=== PATIENT | female | born 1985 | race African-American/Black ===

== ENCOUNTER 2017-02-16 20:01 | Emergency (ER) | payer MEDICAID ==
[~2017-02-16] VITALS: Ht 172.7 cm; Wt 84.0 kg
[2017-02-16 20:02] VITALS: BP 122/85; PULSE 75; RESP 16; TEMP 98.7; O2SAT 97
[2017-02-16 20:35] VITALS: RESP 17; O2SAT 99
--- NOTE | 2017-02-16 20:38 | PD ---
HPI Chief Complaint: Pain: Acute or Chronic Time Seen by Provider: 20:24 Travel History International Travel<30 days: No Contact w/Intl Traveler<30days: No Traveled to known affect area: No History of Present Illness HPI The patient is a 31-year-old after [place] female who presents to the emergency department for chest pain. The patient notes a 6 month history of intermittent chest pain which is located over the inferior left rib cage, intermittent, lasts several minutes, described as dull and achy, and exacerbated by sneezing, coughing, and lying on the affected side. She denies any exertional symptoms, however, does note the pain occasionally takes her breath away. She does note occasional nausea but denies any vomiting or diaphoresis. The patient denies any known history of coronary artery disease, hypertension, hyperlipidemia, diabetes, but does have a history of tobacco use. She also states her mother and father had heart-related diseases. The symptoms have been ongoing for 6 months, she denies any productive cough or rash over the affected area. She cannot recall any trauma to the affected area. The patient's last menstrual cycle was January 22, 2017. The patient denies any postprandial symptoms. FORMERLY [facility] Past Medical History Medical History: Denies Significant Hx ?: Unknown LMP: 01/28/17 Ectopic : Yes (LEFT FALLOPIAN TUBE REMOVED) Past Surgical History Narrative Surgical Ectopic with left fallopian tube removal, right shoulder surgery Social History Alcohol Use: Yes (WEEKENDS) Tobacco Use: Yes (/2 PPD) Substance Use: Yes (MARIJUANA DAILY) Allergies-Medications (Allergen,Severity, Reaction): Coded Allergies: No Known Allergies (Unverified , 02/16/17) Reported Meds & Prescriptions Reported Meds & Active Scripts Active No Active Prescriptions or Reported Medications Review of Systems Except as stated in HPI: all other systems reviewed are Neg General / Constitutional: No: Fever HENT: No: Lightheadedness Cardiovascular: Positive: Chest Pain or Discomfort, No: Diaphoresis, Dyspnea on exertion Respiratory: Positive: Shortness of Breath Gastrointestinal: Positive: Nausea, No: Vomiting, Abdominal Pain Skin: No Rash Physical Exam Narrative GENERAL: Awake, alert, pleasant 31-year-old female who appears her stated age and is in no acute respiratory distress. SKIN: Focused skin assessment warm/dry. HEAD: Atraumatic. Normocephalic. EYES: Pupils equal and round. No scleral icterus. No injection or drainage. ENT: No nasal bleeding or discharge. Mucous membranes pink and moist. NECK: Trachea midline. No JVD. CARDIOVASCULAR: Regular rate and rhythm. No murmur appreciated. Palpation of the chest wall just inferior to the breast reproduces symptoms. RESPIRATORY: No accessory muscle use. Clear to auscultation. Breath sounds equal bilaterally. GASTROINTESTINAL: Abdomen soft, non-tender, nondistended. No epigastric tenderness, rebound tennis, guarding, rigidity. Negative Simpson's. Back: No CVA tenderness. MUSCULOSKELETAL: No obvious deformities. No clubbing. No cyanosis. No edema. NEUROLOGICAL: Awake and alert. No obvious cranial nerve deficits. Motor grossly within normal limits. Normal speech. PSYCHIATRIC: Appropriate mood and affect; insight and judgment normal. Data Data Last Documented VS Vital Signs Date Time Temp Pulse Resp B/P (MAP) Pulse Ox O2 Delivery O2 Flow Rate FiO2 02/16/17 20:35 73 17 02/16/17 20:35 99 Nasal Cannula 2.00 02/16/17 20:02 98.7 Orders Orders Electrocardiogram (02/16/17 20:31) Ckmb (Isoenzyme) Profile (02/16/17 20:31) Complete Blood Count With Diff (02/16/17 20:31) Comprehensive Metabolic Panel (02/16/17 20:31) Magnesium (Mg) (02/16/17 20:31) Prothrombin Time / Inr (Pt) (02/16/17 20:31) Act Partial Throm Time (Ptt) (02/16/17 20:31) Troponin I (02/16/17 20:31) Chest, Single Ap (02/16/17 20:31) Ecg Monitoring (02/16/17 20:31) Bilateral Bp Monitoring (02/16/17 20:31) Iv Access Insert/Monitor (02/16/17 20:31) Oximetry (02/16/17 20:31) Oxygen Administration (02/16/17 20:31) Morphine Inj (Morphine Inj) (02/16/17 20:45) Sodium Chloride 0.9% Flush (Ns Flush) (02/16/17 20:45) Sodium Chlorid 0.9% 500 Ml Inj (Ns 500 M (02/16/17 20:45) Ondansetron Inj (Zofran Inj) (02/16/17 20:45) Ketorolac Inj (Toradol Inj) (02/16/17 20:45) Ed Urine Pregnancytest Poc (02/16/17 20:38) CKMB (02/16/17 20:35) CKMB% (02/16/17 20:35) Labs Laboratory Tests Test 02/16/17 20:35 White Blood Count 8.6 TH/MM3 Red Blood Count 4.96 MIL/MM3 Hemoglobin 14.0 GM/DL Hematocrit 41.5 % Mean Corpuscular Volume 83.8 FL Mean Corpuscular Hemoglobin 28.3 PG Mean Corpuscular Hemoglobin Concent 33.8 % Red Cell Distribution Width 13.7 % Platelet Count 236 TH/MM3 Mean Platelet Volume 7.7 FL Neutrophils (%) (Auto) 59.2 % Lymphocytes (%) (Auto) 27.7 % Monocytes (%) (Auto) 9.5 % Eosinophils (%) (Auto) 2.8 % Basophils (%) (Auto) 0.8 % Neutrophils # (Auto) 5.1 TH/MM3 Lymphocytes # (Auto) 2.4 TH/MM3 Monocytes # (Auto) 0.8 TH/MM3 Eosinophils # (Auto) 0.2 TH/MM3 Basophils # (Auto) 0.1 TH/MM3 CBC Comment DIFF FINAL Differential Comment Prothrombin Time 12.0 SEC Prothromb Time International Ratio 1.1 RATIO Activated Partial Thromboplast Time 25.3 SEC Blood Urea Nitrogen 7 MG/DL Creatinine 0.74 MG/DL Random Glucose 85 MG/DL Total Protein 7.3 GM/DL Albumin 3.8 GM/DL Calcium Level 8.9 MG/DL Magnesium Level 2.2 MG/DL Alkaline Phosphatase 83 U/L Aspartate Amino Transf (AST/SGOT) 15 U/L Alanine Aminotransferase (ALT/SGPT) 26 U/L Total Bilirubin 0.3 MG/DL Sodium Level 138 MEQ/L Potassium Level 3.7 MEQ/L Chloride Level 108 MEQ/L Carbon Dioxide Level 22.6 MEQ/L Anion Gap 7 MEQ/L Estimat Glomerular Filtration Rate 112 ML/MIN Total Creatine Kinase 123 U/L Troponin I LESS THAN 0.02 NG/ML MDM Medical Decision Making Medical Screen Exam Complete: Yes Emergency Medical Condition: Yes Medical Record Reviewed: Yes Interpretation(s) EKG reveals sinus rhythm with sinus arrhythmia. Inverted T waves noted in lead 3. Last Impressions Chest X-Ray 02/16/172030 Signed Impressions: Service Date/Time: Thursday, February 16, 2017 20:40 - CONCLUSION: No acute disease. Wiliam Michael MD Laboratory Tests Test 02/16/17 20:35 White Blood Count 8.6 TH/MM3 Red Blood Count 4.96 MIL/MM3 Hemoglobin 14.0 GM/DL Hematocrit 41.5 % Mean Corpuscular Volume 83.8 FL Mean Corpuscular Hemoglobin 28.3 PG Mean Corpuscular Hemoglobin Concent 33.8 % Red Cell Distribution Width 13.7 % Platelet Count 236 TH/MM3 Mean Platelet Volume 7.7 FL Neutrophils (%) (Auto) 59.2 % Lymphocytes (%) (Auto) 27.7 % Monocytes (%) (Auto) 9.5 % Eosinophils (%) (Auto) 2.8 % Basophils (%) (Auto) 0.8 % Neutrophils # (Auto) 5.1 TH/MM3 Lymphocytes # (Auto) 2.4 TH/MM3 Monocytes # (Auto) 0.8 TH/MM3 Eosinophils # (Auto) 0.2 TH/MM3 Basophils # (Auto) 0.1 TH/MM3 CBC Comment DIFF FINAL Differential Comment Prothrombin Time 12.0 SEC Prothromb Time International Ratio 1.1 RATIO Activated Partial Thromboplast Time 25.3 SEC Blood Urea Nitrogen 7 MG/DL Creatinine 0.74 MG/DL Random Glucose 85 MG/DL Total Protein 7.3 GM/DL Albumin 3.8 GM/DL Calcium Level 8.9 MG/DL Magnesium Level 2.2 MG/DL Alkaline Phosphatase 83 U/L Aspartate Amino Transf (AST/SGOT) 15 U/L Alanine Aminotransferase (ALT/SGPT) 26 U/L Total Bilirubin 0.3 MG/DL Sodium Level 138 MEQ/L Potassium Level 3.7 MEQ/L Chloride Level 108 MEQ/L Carbon Dioxide Level 22.6 MEQ/L Anion Gap 7 MEQ/L Estimat Glomerular Filtration Rate 112 ML/MIN Total Creatine Kinase 123 U/L Troponin I LESS THAN 0.02 NG/ML Differential Diagnosis Differential diagnosis includes costochondritis, pulmonary embolism, pleural effusion, malignancy, gastritis, GERD, esophageal spasm, acute coronary syndrome , splenomegaly. Narrative Course IV was established, labs are drawn and sent, and the patient was placed on cardiac telemetry monitoring and continuous pulse oximetry monitoring. EKG was ordered and interpreted. Chest x-ray was obtained. The patient received Toradol, morphine, and Zofran for her symptoms. Bedside UA test was negative. The patient's chest x-rays unremarkable. Initial troponin is within normal limits. The patient's chest pain is most likely musculoskeletal as I can reproduce it on palpation, and it is worse with lying on the affected side and sneezing/coughing. The patient is advised to take any inflammatories as needed and follow-up with her primary physician. She will be provided a copy of her chest x-ray results and lab results at discharge. Diagnosis Primary Impression: Chest wall pain Patient Instructions: General Instructions Additional Instructions: Medications as directed. Follow-up with your primary physician. Please provide the patient a copy of her labs and chest x-ray results at discharge. Return if symptoms worsen or progress. Med/Other Pt SpecificInfo: Prescription(s) given Scripts Ibuprofen (Ibuprofen) 600 Mg Tab 600 MG PO Q6H Y for Pain/Inflammation, #20 TAB 0 Refills Prov: Tanner Lopez MD 02/16/17 Disposition: DISCHARGE HOME Condition: Stable Tanner Lopez MD Feb 16, 2017 20:38
[2017-02-16] MEDS ORDERED: SODIUM CHLORID 0.9% 500 ML INJ 500 ML IV ONE (20:45)
[2017-02-16] MEDS ORDERED: KETOROLAC TROMETHAMINE 30 MG/ML (IVP) VIAL IV PUSH ONE (20:45)
[2017-02-16] MEDS ORDERED: ONDANSETRON HCL 4 MG/2 ML VIAL IV PUSH ONE (20:45)
[2017-02-16] MEDS ORDERED: MORPHINE SULFATE 4 MG/ML INJ IV PUSH ONE (20:45)
[2017-02-16] MEDS ORDERED: SODIUM CHLORIDE 0.9% FLUSH 10 ML FLUSH IVF PRN (20:45)
[2017-02-16 20:46] LABS: AUTOMATED NEUTROPHIL # 5.1 TH/MM3 (1.8-7.7); BASOPHIL # 0.1 TH/MM3 (0-0.2); BASOPHIL % 0.8 % (0.0-2.0); EOSINOPHIL # 0.2 TH/MM3 (0-0.4); EOSINOPHIL % 2.8 % (0.0-4.0); HEMATOCRIT 41.5 % (35.0-46.0); HEMO FLAGS DIFF FINAL; LYMPH % 27.7 % (9.0-44.0); LYMPHOCYTE # 2.4 TH/MM3 (1.0-4.8); MEAN CELL VOLUME 83.8 FL (80.0-100.0); MEAN CORPUSCULAR HEMOGLOBIN 28.3 PG (27.0-34.0); MEAN CORPUSCULAR HGB CONC 33.8 % (32.0-36.0); MONO % 9.5 % (0.0-8.0); NEUT % 59.2 % (16.0-70.0); PLATELET COUNT 236 TH/MM3 (150-450); RED BLOOD COUNT 4.96 MIL/MM3 (4.00-5.30); RED CELL DISTRIBUTION WIDTH 13.7 % (11.6-17.2); WHITE BLOOD COUNT 8.6 TH/MM3 (4.0-11.0)
[2017-02-16 20:55] LABS: APTT (PATIENT) 25.3 SEC (24.3-30.1); INTERNATIONAL NORMALIZED RATIO 1.1 RATIO
--- NOTE | 2017-02-16 21:01 | RADRPT ---
EXAM DATE/TIME: 02/16/2017 20:40 [facility] COMPARISON: No previous studies available for comparison. INDICATIONS : Chest pain and shortness of breath. MEDICAL HISTORY : None. SURGICAL HISTORY : None. ENCOUNTER: Initial ACUITY: 1 month PAIN SCORE: 8/10 LOCATION: Bilateral chest FINDINGS: A single view of the chest demonstrates the lungs to be symmetrically aerated without evidence of mas s, infiltrate or effusion. The cardiomediastinal contours are unremarkable. Osseous structures are intact. CONCLUSION: No acute disease. Wiliam Michael MD on February 16, 2017 at 20:59 Board Certified Radiologist. This report was verified electronically.
[2017-02-16 21:16] LABS: ANION GAP 7 MEQ/L (5-15); AST (GOT) 15 U/L (15-37); BICARBONATE 22.6 MEQ/L (21.0-32.0); BLOOD UREA NITROGEN 7 MG/DL (7-18); CHLORIDE 108 MEQ/L (98-107); GLOMERULAR FILTRATION RATE 112 ML/MIN (>89); MAGNESIUM 2.2 MG/DL (1.5-2.5); POTASSIUM 3.7 MEQ/L (3.5-5.1); SODIUM (NA) 138 MEQ/L (136-145)
[2017-02-16 21:17] LABS: ALT (GPT) 26 U/L (10-53)
[2017-02-16 21:21] LABS: ALKALINE PHOSPHATASE 83 U/L (45-117); CREATINE KINASE 123 U/L (26-192); TOTAL BILIRUBIN ADULT 0.3 MG/DL (0.2-1.0)
[2017-02-16] MEDS ORDERED: IBUP-232 PO (21:29)
--- NOTE | 2017-02-17 16:25 | EKG ---
Date Performed: 02/16/2017 Time Performed: 20:34:22 PTAGE: 31 years EKG: Sinus rhythm WITH SINUS ARRHYTHMIA NONSPECIFIC T-WAVE ABNORMALITY BORDERLINE ECG NO PREVIOUS TRACING DOCTOR: Devaughn Watts Interpretating Date/Time 02/17/2017 16:24:12
== END 2017-02-16 21:43 | disposition home or self-care (01) ==
LOC: NEPE 20:01
DX: R07.89 Other chest pain (principal); R11.0 Nausea; R06.02 Shortness of breath; R94.31 Abnormal electrocardiogram [ECG] [EKG]; F17.200 Nicotine dependence, unspecified, uncomplicated; Z82.49 Family history of ischemic heart disease and other diseases of the circulatory system
CPT/HCPCS: 71010; 80053; 82550; 82552; 83735; 84484; 84703; 85025; 85610; 85730; 93005; 96361; 96374; 96375; 99285; J1885; J2270; J2405; J7040

== ENCOUNTER 2017-04-13 15:17 | Emergency (ER) | payer MEDICAID ==
[~2017-04-13] VITALS: Ht 172.7 cm; Wt 90.0 kg
[~2017-04-13 15:17] MED LIST: IBUP-232 PO
[2017-04-13 15:19] VITALS: BP 115/61; PULSE 110; RESP 15; TEMP 99.5; O2SAT 97
[2017-04-13] MEDS ORDERED: SODIUM CHLOR 0.9% 1000 ML INJ 1,000 ML IV ONE ×2 (17:47→18:00)
--- NOTE | 2017-04-13 17:53 | PD ---
HPI Chief Complaint: GI Complaint Time Seen by Provider: 17:47 Travel History International Travel<30 days: No Contact w/Intl Traveler<30days: No Traveled to known affect area: No History of Present Illness HPI Patient is a 31-year-old female presents to emergency room complaints of URI with sinus congestion. Patient reports that since Sunday, she is not been feeling well. Reports that she has increased sinus congestion, reports that she 's had a postnasal drip and a productive cough. Patient reports that she is a smoker, reports that when she coughs, she is bringing up thick productive green to yellowish mucus. Patient denies any fevers, reports that she is having myalgias. She reports that she is coughing so hard, she is vomiting and now has a frontal headache. Patient reports that she is a strong family history of migraines, reports that she thinks that she may have a migraine right now. She reports that she has increased tenderness to the front of her head, reports that she also has photophobia. Patient reports that she has been feeling nauseous and has been vomiting and has not been able to keep anything down including fluids. Patient denies any sick contacts. Denies any recent travels/ trips. PFSH Past Medical History Medical History: Denies Significant Hx ?: Unknown LMP: 03/17/17 Ectopic : Yes (LEFT FALLOPIAN TUBE REMOVED) Past Surgical History Surgical History: No Previous Surgery Social History Alcohol Use: Yes (WEEKENDS) Tobacco Use: Yes (05/29 PPD) Substance Use: Yes (MARIJUANA DAILY) Allergies-Medications (Allergen,Severity, Reaction): Coded Allergies: No Known Allergies (Unverified , 02/16/17) Reported Meds & Prescriptions Reported Meds & Active Scripts Active Augmentin (Amoxicillin-Clavulanate) 875-125 Mg Tab 1 Tab PO BID 10 Days Review of Systems General / Constitutional: No: Fever Eyes: Positive: Photophobia, No: Blurred Vision, Redness, Tearing, Visual changes, Blindness HENT: Positive: Headaches, No: Neck Stiffness, Neck Pain Cardiovascular: No: Chest Pain or Discomfort Respiratory: Positive: Cough, No: Shortness of Breath Gastrointestinal: Positive: Nausea, Vomiting, No: Abdominal Pain Genitourinary: No: Dysuria Musculoskeletal: No: Pain Skin: No Rash Neurologic: Positive: Headache, No: Weakness, Dizziness, Syncope, Focal Abnormalities, Coordination Problem, Paresthesia, Seizures Psychiatric: No: Depression Endocrine: No: Polydipsia Hematologic/Lymphatic: No: Easy Bruising Physical Exam Narrative GENERAL: mild distress SKIN: Focused skin assessment warm/dry. HEAD: Atraumatic. Normocephalic. Patient with frontal sinus and maxillary tenderness EYES: Pupils equal and round. No scleral icterus. No injection or drainage. ENT: No nasal bleeding or discharge. Mucous membranes pink and moist. NECK: Trachea midline. No JVD. Patient with no Kernig's or Brudzinski's signs, no nuchal rigidity CARDIOVASCULAR: Regular rate and rhythm. No murmur appreciated. RESPIRATORY: No accessory muscle use. Clear to auscultation. Breath sounds equal bilaterally. GASTROINTESTINAL: Abdomen soft, non-tender, nondistended. Hepatic and splenic margins not palpable. MUSCULOSKELETAL: No obvious deformities. No clubbing. No cyanosis. No edema. NEUROLOGICAL: Awake and alert. No obvious cranial nerve deficits. Motor grossly within normal limits. Normal speech. CN 2-12 grossly intact with no neurological deficits. PSYCHIATRIC: Appropriate mood and affect; insight and judgment normal. Data Data Last Documented VS Vital Signs Date Time Temp Pulse Resp B/P (MAP) Pulse Ox O2 Delivery O2 Flow Rate FiO2 04/13/17 18:24 18 04/13/17 18:14 99 Room Air 04/13/17 15:19 99.5 110 Orders Orders Complete Blood Count With Diff (04/13/17 17:47) Comprehensive Metabolic Panel (04/13/17 17:47) Group A Rapid Strep Screen (04/13/17 17:47) Influenzae A/B Antigen (04/13/17 17:47) Chest, Pa & Lat (04/13/17 17:47) Ecg Monitoring (04/13/17 17:47) Iv Access Insert/Monitor (04/13/17 17:47) Oximetry (04/13/17 17:47) Sodium Chloride 0.9% Flush (Ns Flush) (04/13/17 18:00) Ct Brain W/O Iv Contrast(Rout) (04/13/17 17:47) Diphenhydramine Inj (Benadryl Inj) (04/13/17 18:00) Metoclopramide Inj (Reglan Inj) (04/13/17 18:00) Sodium Chlor 0.9% 1000 Ml Inj (Ns 1000 M (04/13/17 17:47) Dexamethasone Inj (Decadron Inj) (04/13/17 18:00) Sodium Chlor 0.9% 1000 Ml Inj (Ns 1000 M (04/13/17 18:00) Ed Urine Pregnancytest Poc (04/13/17 17:47) Strep Culture (Group A) (04/13/17 18:10) Amoxicil-Clavulanate (Augmentin) (04/13/17 21:45) Labs Laboratory Tests Test 04/13/17 18:10 White Blood Count 9.6 TH/MM3 Red Blood Count 4.81 MIL/MM3 Hemoglobin 14.1 GM/DL Hematocrit 41.0 % Mean Corpuscular Volume 85.1 FL Mean Corpuscular Hemoglobin 29.3 PG Mean Corpuscular Hemoglobin Concent 34.4 % Red Cell Distribution Width 13.6 % Platelet Count 195 TH/MM3 Mean Platelet Volume 8.1 FL Neutrophils (%) (Auto) 68.4 % Lymphocytes (%) (Auto) 16.6 % Monocytes (%) (Auto) 12.5 % Eosinophils (%) (Auto) 2.0 % Basophils (%) (Auto) 0.5 % Neutrophils # (Auto) 6.5 TH/MM3 Lymphocytes # (Auto) 1.6 TH/MM3 Monocytes # (Auto) 1.2 TH/MM3 Eosinophils # (Auto) 0.2 TH/MM3 Basophils # (Auto) 0.0 TH/MM3 CBC Comment DIFF FINAL Differential Comment Blood Urea Nitrogen 7 MG/DL Creatinine 0.85 MG/DL Random Glucose 90 MG/DL Total Protein 7.7 GM/DL Albumin 3.8 GM/DL Calcium Level 8.6 MG/DL Alkaline Phosphatase 87 U/L Aspartate Amino Transf (AST/SGOT) 23 U/L Alanine Aminotransferase (ALT/SGPT) 49 U/L Total Bilirubin 0.3 MG/DL Sodium Level 138 MEQ/L Potassium Level 3.6 MEQ/L Chloride Level 107 MEQ/L Carbon Dioxide Level 23.7 MEQ/L Anion Gap 7 MEQ/L Estimat Glomerular Filtration Rate 95 ML/MIN MDM Medical Decision Making Medical Screen Exam Complete: Yes Emergency Medical Condition: Yes Medical Record Reviewed: Yes Interpretation(s) Vital Signs Date Time Temp Pulse Resp B/P (MAP) Pulse Ox O2 Delivery O2 Flow Rate FiO2 04/13/17 15:19 99.5 110 15 115/61 (80) 71 Differential Diagnosis viral syndrome, sinusitis, influenza, pneumonia, migraine Narrative Course 31-year-old female who presents to emergency room with complaints of sinusitis, URI, productive cough which has been ongoing for the past 4 days. During the course of the patients emergency department visit, the patients history, examination, and differential diagnosis were reviewed with the patient. The patient was placed on a monitoring and evaluation advisor with oximetry and frequent blood pressure monitoring. The patient had an IV access obtained and blood work sent for analysis. The patient was initially provided IV fluids, IV Reglan, dexamethasone as well as IV Benadryl The patients laboratory studies were reviewed and remarkable for : CBC & BMP Diagram 04/13/17 18:10 Total Protein 7.7, Albumin 3.8, Calcium Level 8.6, Alkaline Phosphatase 87, Aspartate Amino Transf (AST/SGOT) 23, Alanine Aminotransferase (ALT/SGPT) 49, Total Bilirubin 0.3 Microbiology Date/Time Source Procedure Growth Status 04/13/17 18:10 Throat Group A Streptococcus Screen Pending Received 04/13/17 18:10 Nasal Aspirate Influenza Types A,B Antigen (ANGELA) - Final NEGATIVE FOR FLU A AND B ANTIGEN.... Complete 04/13/17 18:10 Throat Group A Streptococcus Screen (ANGELA) - Final Complete Radiology studies were reviewed and remarkable for: Last Impressions Head CT 04/13/171746 Signed Impressions: Service Date/Time: Thursday, April 13, 2017 18:32 - CONCLUSION: Normal examination. Aba Alfaro MD Chest X-Ray 04/13/171746 Signed Impressions: Service Date/Time: Thursday, April 13, 2017 18:02 - CONCLUSION: No acute disease. Aba Alfaro MD Patient reevaluated, patient reports that she is feeling much better at this time. Patient reports complete resolution of symptoms. I reviewed all labs and all studies with patient in detail, patient most likely with sinusitis causing her cephalgia and URI. Patient with normal neurovascular exam at this time, patient is safe to be discharged to home with outpatient follow-up. Patient will follow-up with her primary care doctor and return to emergency room as needed. Diagnosis Primary Impression: Sinusitis Qualified Codes: J01.10 - Acute frontal sinusitis, unspecified Patient Instructions: General Instructions Additional Instructions: Please provide patient with a copy of their lab work and studies at discharge* * Please follow up with your primary care doctor in 2-3 days Return to the ER if symptoms worsen or progress Return to the ER as needed Please take all antibiotics as prescribed Med/Other Pt SpecificInfo: Prescription(s) given Scripts Amoxicillin-Clavulanate (Augmentin) 875-125 Mg Tab 1 TAB PO BID for Infection for 10 Days, #20 TAB 0 Refills Prov: Amarilis Healy DO 04/13/17 Disposition: 01 DISCHARGE HOME Condition: Stable Amarilis Healy DO Apr 13, 2017 17:53
[2017-04-13] MEDS ORDERED: SODIUM CHLORIDE 0.9% FLUSH 10 ML FLUSH IVF PRN (18:00)
[2017-04-13] MEDS ORDERED: DEXAMETHASONE SOD PHOS 20 MG/5 ML VIAL IV PUSH ONE (18:00)
[2017-04-13] MEDS ORDERED: METOCLOPRAMIDE HCL 10 MG/2 ML VIAL IVP ONE (18:00)
[2017-04-13] MEDS ORDERED: diphenhydrAMINE HCL 50 MG/ML VIAL IVP ONE (18:00)
[2017-04-13 18:14] VITALS: RESP 16; O2SAT 99
--- NOTE | 2017-04-13 19:03 | RADRPT ---
EXAM DATE/TIME: 04/13/2017 18:02 [facility] COMPARISON: No previous studies available for comparison. INDICATIONS : Cough, congestion, dizziness and headache. MEDICAL HISTORY : Asthma. SURGICAL HISTORY : None. ENCOUNTER: Initial ACUITY: 4 - 6 days PAIN SCORE: 0/10 LOCATION: Bilateral chest FINDINGS: PA and lateral views of the chest demonstrate the lungs to be symmetrically aerated without evidence of mass, infiltrate or effusion. The cardiomediastinal contours are unremarkable. Osseous structure s are intact. CONCLUSION: No acute disease. Aba Alfaro MD on April 13, 2017 at 19:01 Board Certified Radiologist. This report was verified electronically.
[2017-04-13 19:07] LABS: AUTOMATED NEUTROPHIL # 6.5 TH/MM3 (1.8-7.7); BASOPHIL % 0.5 % (0.0-2.0); EOSINOPHIL # 0.2 TH/MM3 (0-0.4); HEMO FLAGS DIFF FINAL; LYMPH % 16.6 % (9.0-44.0); LYMPHOCYTE # 1.6 TH/MM3 (1.0-4.8); MEAN CELL VOLUME 85.1 FL (80.0-100.0); MEAN CORPUSCULAR HEMOGLOBIN 29.3 PG (27.0-34.0); MEAN CORPUSCULAR HGB CONC 34.4 % (32.0-36.0); MONO % 12.5 % (0.0-8.0); NEUT % 68.4 % (16.0-70.0); PLATELET COUNT 195 TH/MM3 (150-450); RED BLOOD COUNT 4.81 MIL/MM3 (4.00-5.30); RED CELL DISTRIBUTION WIDTH 13.6 % (11.6-17.2); WHITE BLOOD COUNT 9.6 TH/MM3 (4.0-11.0)
--- NOTE | 2017-04-13 19:18 | RADRPT ---
EXAM DATE/TIME: 04/13/2017 18:32 [facility] COMPARISON: No previous studies available for comparison. INDICATIONS : Cephalgia. RADIATION DOSE: 32.54 CTDIvol (mGy) MEDICAL HISTORY : None SURGICAL HISTORY : None. ENCOUNTER: Initial ACUITY: 1 day PAIN SCALE: 8/10 LOCATION: cranial TECHNIQUE: Multiple contiguous axial images were obtained of the head. Using automated exposure control and adj ustment of the mA and/or kV according to patient size, radiation dose was kept as low as reasonably a chievable to obtain optimal diagnostic quality images. DICOM format image data is available electro nically for review and comparison. FINDINGS: CEREBRUM: The ventricles are normal for age. No evidence of midline shift, mass lesion, hemorrhage or acute in farction. No extra-axial fluid collections are seen. POSTERIOR FOSSA: The cerebellum and brainstem are intact. The 4th ventricle is midline. The cerebellopontine angle i s unremarkable. EXTRACRANIAL: The visualized portion of the orbits is intact. SKULL: The calvaria is intact. No evidence of skull fracture. CONCLUSION: Normal examination. Aba Alfaro MD on April 13, 2017 at 19:15 Board Certified Radiologist. This report was verified electronically.
[2017-04-13 19:25] LABS: ANION GAP 7 MEQ/L (5-15); AST (GOT) 23 U/L (15-37); BICARBONATE 23.7 MEQ/L (21.0-32.0); BLOOD UREA NITROGEN 7 MG/DL (7-18); CHLORIDE 107 MEQ/L (98-107); GLOMERULAR FILTRATION RATE 95 ML/MIN (>89); POTASSIUM 3.6 MEQ/L (3.5-5.1); SODIUM (NA) 138 MEQ/L (136-145)
[2017-04-13 19:26] LABS: ALT (GPT) 49 U/L (10-53)
[2017-04-13 19:29] LABS: ALKALINE PHOSPHATASE 87 U/L (45-117); TOTAL BILIRUBIN ADULT 0.3 MG/DL (0.2-1.0)
[2017-04-13] MEDS ORDERED: AUGM875T3 PO (21:33)
[2017-04-13] MEDS ORDERED: AMOXICILLIN/CLAVULANATE K 875 MG TAB PO ONE (21:45)
== END 2017-04-13 21:45 | disposition home or self-care (01) ==
LOC: NEPD 15:17
DX: J01.10 Acute frontal sinusitis, unspecified (principal); B95.4 Other streptococcus as the cause of diseases classified elsewhere; F17.210 Nicotine dependence, cigarettes, uncomplicated
CPT/HCPCS: 70450; 71020; 80053; 84703; 85025; 87081; 87804; 87880; 96374; 96375; 99285; J1100; J1200; J2765; J7030